=== PATIENT | female | born 1980 | race Caucasian/White ===

== ENCOUNTER 2018-03-26 13:55 | Inpatient (IN) | payer BC, MEDICARE ==
[~2018-03-26] VITALS: Ht 170.2 cm; Wt 77.6 kg
[~2018-03-26 13:55] MED LIST: FentaNYL CITRATE-PF 100 MCG/2 ML VIAL IVP ONE; KETAMINE HCL 50 MG/ML 10 ML VIAL IVP ONE; LIDOCAINE/PF 2% 5 ML VIAL INJ ONE; MIDAZOLAM HCL 2 MG/2 ML VIAL IVP ONE; ONDANSETRON HCL 4 MG/2 ML VIAL IVP ONE; PROPOFOL 1% 20 ML VIAL IVP ONE
[2018-03-26] MEDS ORDERED: CeFAZolin 2 GM/DEXTROSE 50 ML IV ONE ×2 (14:25→14:30)
[2018-03-26] MEDS ORDERED: RINGERS SOLUTION,LACTATED 1,000 ML IV SCH (14:30)
[2018-03-26] MEDS ORDERED: RINGERS SOLUTION,LACTATED 1,000 ML IV ONE (14:35)
[2018-03-26 14:44] LABS: HEMATOCRIT 37.8 % (36-46); HEMOGLOBIN 12.7 g/dL (12.0-16.0); MEAN CORPUSCULAR HEMOGLOBIN 33.1 pg (26.0-34.0); MEAN CORPUSCULAR HGB CONC 33.6 G/dL (31.0-37.0); MEAN CORPUSCULAR VOLUME 99 fL (80-100); PLATELET COUNT (AUTO) 308 K/uL (150-450); RED BLOOD CELL COUNT(AUTO) 3.83 MIL/uL (4.00-5.20); RED CELL DISTRIBUTION WIDTH 13.2 % (11.5-14.5)
[2018-03-26] MEDS ORDERED: SIMV-259 PO (14:52)
[2018-03-26] MEDS ORDERED: PERCT PO (14:52)
[2018-03-26] MEDS ORDERED: ZOLP10TA7 PO (14:52)
[2018-03-26] MEDS ORDERED: GABA-533 PO (14:52)
[2018-03-26] MEDS ORDERED: TRAZ-220 PO (14:52)
[2018-03-26] MEDS ORDERED: QUET25TA PO (14:52)
[2018-03-26] MEDS ORDERED: DIAZ5 PO (14:52)
[2018-03-26] MEDS ORDERED: BACL10TA PO (14:52)
[2018-03-26] MEDS ORDERED: DULO60CA44 PO (14:52)
[2018-03-26] MEDS ORDERED: MORP30 PO (14:52)
[2018-03-26] MEDS ORDERED: AMIT50TA3 PO (14:52)
[2018-03-26] MEDS ORDERED: FAMO20 PO (14:52)
[2018-03-26 14:56] LABS: ANION GAP 7 mmol/L (8-16); CALCIUM, TOTAL 8.3 mg/dL (8.8-10.5); CARBON DIOXIDE 30 mmol/L (22-29); CHLORIDE 105 mmol/L (98-107); CREATININE 0.66 mg/dL (0.60-1.30); GLOMERULAR FILTR. RATE CALC > 60 mL/min (>60); GLUCOSE,RANDOM 94 mg/dL (70-110); POTASSIUM 3.6 mmol/L (3.5-5.1); SODIUM SERUM 142 mmol/L (136-145); UREA NITROGEN, BLOOD 9 mg/dL (7-18)
[2018-03-26 14:57] LABS: PROTHROMBIN TIME 10.7 SEC (9.4-11.6)
[2018-03-26 15:07] LABS: HCG,QUANTITATIVE < 1 mIU/mL (0-6)
[2018-03-26 15:08] LABS: BAND NEUTROPHILS % (MANUAL) 3 % (0-5); LYMPHOCYTES % (MANUAL) 26 % (22-44); MONOCYTES % (MANUAL) 2 % (2-9); SEGMENTED NEUTROPHILS % 69 % (40-70)
[2018-03-26] MEDS ORDERED: ACETAMINOPHEN 1000 MG/ISO-OSM 100 ML IV ONE ×2 (15:15→15:30)
[2018-03-26] MEDS ORDERED: VANCOMYCIN HCL 1 GM/VIAL ONE (15:16)
[2018-03-26] MEDS ORDERED: SODIUM CHLORIDE 0.9% 10 ML ONE (15:16)
[2018-03-26] MEDS ORDERED: BUPIVACAINE HCL/PF 0.5% 30 ML VIAL ONE (15:16)
[2018-03-26] MEDS ORDERED: MICROFIBRILLAR COLLAGEN 1 GM PACKAGE TP ONE (15:16)
[2018-03-26] MEDS ORDERED: MUPIROCIN CALCIUM 2% 22 GM OINTMENT ONE (15:16)
[2018-03-26] MEDS ORDERED: RINGERS SOLUTION,LACTATED 0 ML IV ONE (15:16)
[2018-03-26] MEDS ORDERED: GUM MASTIC/STORAX/MSAL/ALCOHOL LIQUID 0.67 ML VIAL TP ONE (15:16)
[2018-03-26] MEDS ORDERED: SODIUM CL IRRIG SOLN BAG 3,000 ML IRRIG ONE (15:16)
[2018-03-26] MEDS ORDERED: BACITRACIN 50,000 UNITS/VIAL ONE (15:17)
[2018-03-26] MEDS ORDERED: HYDROmorphone 2 MG/ML SYRINGE IVP PRN (16:30)
[2018-03-26] MEDS ORDERED: MEPERIDINE-PF 25 MG/ML VIAL IVP PRN (16:30)
[2018-03-26] MEDS ORDERED: FentaNYL CITRATE-PF 100 MCG/2 ML VIAL IVP PRN (16:30)
[2018-03-26] MEDS ORDERED: ACETAMINOPHEN 1000 MG/ISO-OSM 100 ML IV SCH (16:30)
[2018-03-26] MEDS ORDERED: KETOROLAC TROMETHAMINE 30 MG/ML VIAL ONE (18:39)
[2018-03-26] MEDS: KETOROLAC TROMETHAMINE 30 MG/ML VIAL IVP SCH (18:48)
[2018-03-26 18:56] VITALS: BP 131/87
[2018-03-26] MEDS: MORPHINE SULFATE 15 MG ER TABLET PO SCH (19:58)
[2018-03-26] MEDS: CYCLOBENZAPRINE HCL 10 MG TABLET PO SCH (19:59)
[2018-03-26] MEDS ORDERED: ACETAMINOPHEN 325 MG TABLET PO PRN (20:00)
[2018-03-26] MEDS ORDERED: MAGNESIUM HYDROXIDE SUSPENSION 30 ML UDCUP PO PRN (20:00)
[2018-03-26] MEDS: HYDROmorphone 2 MG/ML SYRINGE IVP PRN (20:05)
[2018-03-26] MEDS: DOCUSATE SODIUM 100 MG CAPSULE PO SCH (20:14)
[2018-03-26] MEDS: AMITRIPTYLINE HCL 50 MG TABLET PO SCH (22:38)
[2018-03-26] MEDS: TraZODone HCL 100 MG TABLET PO SCH (22:39)
[2018-03-26] MEDS: ZOLPIDEM TARTRATE 10 MG TABLET PO PRN (22:40)
[2018-03-26] MEDS: QUEtiapine FUMARATE 25 MG TABLET PO SCH (22:40)
[2018-03-26] MEDS: OXYGEN THERAPY IH SCH (22:44)
[2018-03-27] MEDS ORDERED: SODIUM CHLORIDE 0.9% 250 ML IV ONE (00:14)
[2018-03-27 00:16] VITALS: BP 109/65
[2018-03-27] MEDS: CeFAZolin 1 GM/DEXTROSE 50 ML IV SCH ×3 (00:42→16:08)
[2018-03-27] MEDS: KETOROLAC TROMETHAMINE 30 MG/ML VIAL IVP SCH ×4 (00:55→17:44)
[2018-03-27 04:48] VITALS: BP 109/79
[2018-03-27] MEDS: HYDROmorphone 2 MG/ML SYRINGE IVP PRN ×4 (05:09→22:15)
[2018-03-27 06:58] LABS: BASOPHILS % (AUTO) 1.1 % (0.0-2.0); EOSINOPHILS % (AUTO) 1.9 % (1.0-6.0); HEMATOCRIT 32.8 % (36-46); HEMOGLOBIN 11.4 g/dL (12.0-16.0); LYMPHOCYTES # (AUTO) 3.5 K/uL (1.0-4.8); LYMPHOCYTES % (AUTO) 70.1 % (22.0-44.0); MEAN CORPUSCULAR HEMOGLOBIN 34.6 pg (26.0-34.0); MEAN CORPUSCULAR HGB CONC 34.7 G/dL (31.0-37.0); MEAN CORPUSCULAR VOLUME 100 fL (80-100); MONOCYTES # (AUTO) 0.3 K/uL (0.1-1.0); MONOCYTES % (AUTO) 5.7 % (2.0-9.0); NEUTROPHILS % (AUTO) 21.2 % (40.0-70.0); PLATELET COUNT (AUTO) 285 K/uL (150-450); RED BLOOD CELL COUNT(AUTO) 3.29 MIL/uL (4.00-5.20); RED CELL DISTRIBUTION WIDTH 13.2 % (11.5-14.5)
[2018-03-27 07:33] VITALS: BP 104/66
[2018-03-27 07:39] LABS: ANION GAP 8 mmol/L (8-16); CALCIUM, TOTAL 8.1 mg/dL (8.8-10.5); CARBON DIOXIDE 31 mmol/L (22-29); CHLORIDE 105 mmol/L (98-107); CREATININE 0.58 mg/dL (0.60-1.30); GLOMERULAR FILTR. RATE CALC > 60 mL/min (>60); GLUCOSE,RANDOM 94 mg/dL (70-110); POTASSIUM 3.2 mmol/L (3.5-5.1); SODIUM SERUM 144 mmol/L (136-145); UREA NITROGEN, BLOOD 10 mg/dL (7-18)
[2018-03-27] MEDS: OXYGEN THERAPY IH SCH ×2 (08:00→20:00)
[2018-03-27] MEDS: BACLOFEN 10 MG TABLET PO SCH ×2 (08:22→20:44)
[2018-03-27] MEDS: GABAPENTIN 400 MG CAPSULE PO SCH ×3 (08:22→20:43)
[2018-03-27] MEDS: CYCLOBENZAPRINE HCL 10 MG TABLET PO SCH ×3 (08:23→20:43)
[2018-03-27] MEDS: DIAZEPAM 5 MG TABLET PO SCH ×2 (08:23→20:43)
[2018-03-27] MEDS: DOCUSATE SODIUM 100 MG CAPSULE PO SCH ×2 (08:23→20:43)
[2018-03-27] MEDS: PANTOPRAZOLE SODIUM 40 MG DR TABLET PO SCH (08:23)
[2018-03-27] MEDS: MORPHINE SULFATE 15 MG ER TABLET PO SCH ×2 (08:23→20:43)
[2018-03-27] MEDS: DULoxetine HCL 60 MG CAPSULE PO SCH (08:23)
[2018-03-27] MEDS: ENOXAPARIN SODIUM 30 MG/0.3 ML PF SYRINGE SQ SCH ×2 (08:24→20:44)
[2018-03-27] MEDS ORDERED: POTASSIUM CHLORIDE 20 MEQ ER TABLET PO ONE (08:30)
[2018-03-27] MEDS ORDERED: SODIUM CL IRRIG SOLN BOTTLE 250 ML IRRIG ONE (11:08)
[2018-03-27 11:11] VITALS: BP 131/93
[2018-03-27 13:03] LABS: BAND NEUTROPHILS % (MANUAL) 0 % (0-5)
[2018-03-27 13:06] LABS: HEMATOCRIT 39.2 % (36-46); HEMOGLOBIN 13.3 g/dL (12.0-16.0); MEAN CORPUSCULAR HEMOGLOBIN 33.8 pg (26.0-34.0); MEAN CORPUSCULAR HGB CONC 33.9 G/dL (31.0-37.0); MEAN CORPUSCULAR VOLUME 100 fL (80-100); PLATELET COUNT (AUTO) 323 K/uL (150-450); RED BLOOD CELL COUNT(AUTO) 3.93 MIL/uL (4.00-5.20); RED CELL DISTRIBUTION WIDTH 13.2 % (11.5-14.5)
[2018-03-27] MEDS: OxyCODONE HCL/ACETAMINOPHEN 5-325 MG TABLET PO PRN ×2 (13:27→18:51)
[2018-03-27 13:56] LABS: EOSINOPHILS % (MANUAL) 1 % (1-6); LYMPHOCYTES % (MANUAL) 77 % (22-44); MONOCYTES % (MANUAL) 1 % (2-9); SEGMENTED NEUTROPHILS % 21 % (40-70)
[2018-03-27 14:35] LABS: ERYTHROCYTE SEDIMENTATION RATE 8 MM/HR (0-20)
[2018-03-27 15:57] VITALS: BP 139/96
[2018-03-27 20:06] VITALS: BP 126/89
[2018-03-27] MEDS: QUEtiapine FUMARATE 25 MG TABLET PO SCH (20:42)
[2018-03-27] MEDS: AMITRIPTYLINE HCL 50 MG TABLET PO SCH (20:43)
[2018-03-27] MEDS: TraZODone HCL 100 MG TABLET PO SCH (20:44)
[2018-03-27] MEDS: ZOLPIDEM TARTRATE 10 MG TABLET PO PRN (21:11)
[2018-03-28] MEDS: KETOROLAC TROMETHAMINE 30 MG/ML VIAL IVP SCH ×3 (00:33→12:05)
[2018-03-28] MEDS: CeFAZolin 1 GM/DEXTROSE 50 ML IV SCH ×2 (00:33→08:00)
[2018-03-28 00:38] VITALS: BP 109/92
[2018-03-28] MEDS ORDERED: SODIUM CHLORIDE 0.9% 250 ML IV ONE (01:50)
[2018-03-28 04:59] VITALS: BP 111/76
[2018-03-28] MEDS: HYDROmorphone 2 MG/ML SYRINGE IVP PRN ×2 (05:01→09:48)
[2018-03-28 07:20] VITALS: BP 126/86
[2018-03-28] MEDS: ENOXAPARIN SODIUM 30 MG/0.3 ML PF SYRINGE SQ SCH (07:49)
[2018-03-28] MEDS: BACLOFEN 10 MG TABLET PO SCH (07:49)
[2018-03-28] MEDS: MORPHINE SULFATE 15 MG ER TABLET PO SCH (07:50)
[2018-03-28] MEDS: GABAPENTIN 400 MG CAPSULE PO SCH (07:50)
[2018-03-28] MEDS: DOCUSATE SODIUM 100 MG CAPSULE PO SCH (07:50)
[2018-03-28] MEDS: DIAZEPAM 5 MG TABLET PO SCH (07:50)
[2018-03-28] MEDS: CYCLOBENZAPRINE HCL 10 MG TABLET PO SCH (07:51)
[2018-03-28] MEDS: DULoxetine HCL 60 MG CAPSULE PO SCH (08:24)
[2018-03-28] MEDS: PANTOPRAZOLE SODIUM 40 MG DR TABLET PO SCH (08:25)
[2018-03-28] MEDS: OxyCODONE HCL/ACETAMINOPHEN 5-325 MG TABLET PO PRN (10:31)
[2018-03-28] MEDS ORDERED: BACTDSB PO (10:51)
[2018-03-28 11:27] VITALS: BP 137/90
== END 2018-03-28 13:29 | disposition home or self-care (01) | DRG 857 ==
LOC: 6N 13:55
PROVIDERS: ADMIT Orthopaedic Surgery; ATTEND Orthopaedic Surgery
PROC: 3E0U3BZ Introduction of Anesthetic Agent into Joints, Percutaneous Approach (ICD-10-PCS; 2018-03-26)
PROC: 0YBJ0ZZ Excision of Left Lower Leg, Open Approach (ICD-10-PCS; principal; 2018-03-26 15:00)
DX: T81.49XA Infection following a procedure, other surgical site, initial encounter (principal); F11.20 Opioid dependence, uncomplicated; G81.94 Hemiplegia, unspecified affecting left nondominant side; G89.29 Other chronic pain; E87.6 Hypokalemia; Y83.8 Other surgical procedures as the cause of abnormal reaction of the patient, or of later complication, without mention of misadventure at the time of the procedure; Z91.018 Allergy to other foods; Z98.2 Presence of cerebrospinal fluid drainage device; Y92.89 Other specified places as the place of occurrence of the external cause
CPT/HCPCS: 72040; 72125; 85007; 85651; 86140; 87070; 87081; 90686; G0378; J0131; J0690; J1170; J1650; J1885; J2250; J2405; J2704; J3010; J3370; J3490; J7050; J7120